=== PATIENT | male | born 1945 | race Caucasian/White ===

== ENCOUNTER 2017-02-13 23:03 | Emergency (ER) | payer SELFPAY ==
[2017-02-13] MEDS ORDERED: IPRATROPIUM/ALBUTEROL (0.5MG/3MG) NEB INH ONE (23:29)
[2017-02-13] MEDS ORDERED: METHYLPREDNISOLONE PF 125MG/VIAL IM ONE (23:30)
[2017-02-13] MEDS ORDERED: PROMETHAZINE W/CODEINE 10ML UD PO ONE (23:30)
--- NOTE | 2017-02-13 23:32 | Emergency Department Record ---
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 He denies known fevers, chills, cp, guerra, st. HE quit smoking 35 years ago, denies history of pneumonia, asthma, COPD. MD Complaint: Cough Onset/Timin -: Month(s) Severity: Mild Severity scale (1-10): 6 Consistency: Constant - Related Data Home Medications Medication Instructions Recorded Confirmed Last Taken Lisinopril [Prinivil] 10 mg PO DAILY 02/13/17 02/13/17 Unknown Vitamin E 1,200 unit PO DAILY 02/13/17 02/13/17 Unknown Previous Rx's Medication Instructions Recorded Promethazine HCl/Codeine 5 - 10 ml PO .AT BEDTIME PRN #[id number] 02/14/17 [Phenergan W/Codeine] ml Allergies Allergy/AdvReac Type Severity Reaction Status Date / Time No Known Drug Allergies Allergy Verified 02/13/17 23:13 Travel Screening - Travel/Exposure Within Last 30 Days Have you traveled within the last 30 days?: No Review of Systems Reviewed: No additional complaints except as noted below Constitutional: Reports: As per HPI. Denies: Chills, Fever, Malaise, Night sweats, Weakness, Weight change Eyes: Reports: As per HPI. Denies: Eye discharge, Eye pain, Photophobia, Vision change ENT: Reports: As per HPI. Denies: Congestion, Dental pain, Ear pain, Epistaxis , Hearing loss, Throat pain Respiratory: Reports: As per HPI. Denies: Cough, Dyspnea, Hemoptysis, Stridor, Wheezes Cardiovascular: Reports: As per HPI. Denies: Arrhythmia, Chest pain, Dyspnea on exertion, Edema, Murmurs, Orthopnea, Palpitations, Paroxysmal nocturnal dyspnea, Rheumatic Fever, Syncope Endocrine: Reports: As per HPI. Denies: Fatigue, Heat or cold intolerance, Polydipsia, Polyuria Gastrointestinal: Reports: As per HPI. Denies: Abdominal pain, Constipation, Diarrhea, Hematemesis, Hematochezia, Melena, Nausea, Vomiting Genitourinary: Reports: As per HPI. Denies: Dysuria, Frequency, Hematuria, Incontinence, Retention, Testicular pain, Testicular mass, Urgency Musculoskeletal: Reports: As per HPI. Denies: Arthralgia, Back pain, Gout, Joint swelling, Myalgia, Neck pain Skin: Reports: As per HPI. Denies: Bruising, Change in color, Change in hair/ nails, Lesions, Pruritus, Rash Neurological: Reports: As per HPI. Denies: Abnormal gait, Confusion, Headache, Numbness, Paresthesias, Seizure, Tingling, Tremors, Vertigo, Weakness Psychiatric: Reports: As per HPI. Denies: Anxiety, Auditory hallucinations, Depression, Homicidal thoughts, Suicidal thoughts, Visual hallucinations Hematological/Lymphatic: Reports: As per HPI. Denies: Anemia, Blood Clots, Easy bleeding, Easy bruising, Swollen glands Past Medical History - SOCIAL HISTORY Smoking Status: Light tobacco smoker (<10/day) Alcohol Use: None Drug Use: None - RESPIRATORY Hx Respiratory Disorders: No - CARDIOVASCULAR Hx Cardio Disorders: Yes Hx Cardiac Cath: Yes - Hx Genitourinary Disorders: Yes Hx Prostate Problems: Yes (prostectomy) - ENDOCRINE Hx Endocrine Disorders: No - MUSCULOSKELETAL Hx Musculoskeletal Disorders: No - PSYCH Hx Psych Problems: No - HEMATOLOGY/ONCOLOGY Hx Hematology/Oncology Disorders: No Family Medical History Any Significant Family History?: No Physical Exam - General General Appearance: Alert, Oriented x3, Cooperative, Moderate distress (having coughing fits which he has trouble stopping) - Head Head exam: Normal inspection - Eye Eye exam: Normal appearance, PERRL Pupils: Normal accommodation - ENT ENT exam: Normal exam, Mucous membranes moist, Normal external ear exam, Normal orophraynx, TM's normal bilaterally Ear exam: Normal external inspection. negative: External canal tenderness Nasal Exam: Normal inspection. negative: Discharge, Sinus tenderness Mouth exam: Normal external inspection, Tongue normal Teeth exam: Normal inspection. negative: Dental caries Throat exam: Normal inspection. negative: Tonsillar erythema, Tonsillar exudate - Neck Neck exam: Normal inspection, Full ROM. negative: Tenderness - Respiratory Respiratory exam: Normal lung sounds bilaterally, Wheezes (expiratory wheezes and rhonchi with coughing spasms). negative: Respiratory distress - Cardiovascular Cardiovascular Exam: Regular rate, Normal rhythm, Normal heart sounds - GI/Abdominal GI/Abdominal exam: Soft, Normal bowel sounds. negative: Tenderness - Rectal Rectal exam: Deferred - exam: Deferred - Extremities Extremities exam: Normal inspection, Full ROM, Normal capillary refill. negative: Calf tenderness, Pedal edema, Tenderness - Back Back exam: Reports: Normal inspection, Full ROM. Denies: Muscle spasm, Rash noted, Tenderness - Neurological Neurological exam: Alert, CN II-XII intact, Normal gait, Oriented X3, Reflexes normal - Psychiatric Psychiatric exam: Normal affect, Normal mood - Skin Skin exam: Dry, Intact, Normal color, Warm Course Vital Signs 02/13/17 23:15 Temperature 98.3 F Pulse Rate 72 Respiratory 24 Rate Blood Pressure 139/79 Pulse Ox 96 - Reevaluation(s) Reevaluation #1: Airway has loosened up after treatment, but patient is still coughing but slightly less. Taken to XRay. 02/13/17 23:53 Medical Decision Making - Management Options MDM Management: No Additional Work-up Planned - Data Complexity MDM Data: X-Ray Ordered and/or Reviewed (CXR: Neg per ED physician.) Disposition Disposition: Discharge Clinical Impression: Bronchitis Disposition: Home, Self-Care Condition: (1) Good Instructions: Cold Symptoms (ED), Viral Syndrome (ED) Additional Instructions: Take benadryl Elixir 50 mg at bedtime to help numb throat and aide in sleep. Or use phenergan with codeine elixir 10 cc at bedtime to help suppress cough. During the daytime use lozenges, throat sprays, cough with nose and mouth tightly covered. Have your PCP consider changing your Lisinopril to another medication as Lisinopril can cause a chronic cough. Follow up with PCP next week in office. Prescriptions: Promethazine HCl/Codeine [Phenergan W/Codeine] 5 - 10 ml PO .AT BEDTIME PRN # 118 ml PRN Reason: Cough Forms: Patient Portal Access
[2017-02-14 00:02] LABS: INFLUENZA A NEGATIVE (NEGATIVE); INFLUENZA B NEGATIVE (NEGATIVE)
== END 2017-02-14 00:17 | disposition home or self-care (01) ==
LOC: ER 23:03
DX: J20.9 Acute bronchitis, unspecified (principal); R06.2 Wheezing
CPT/HCPCS: 71020; 87400; 94640; 96372; 99283; 99284; J2930